=== PATIENT | female | born 1960 | race Caucasian/White ===

== ENCOUNTER 2017-06-05 12:27 | Day surgery (SDC) | payer OTHER ==
[~2017-06-05] VITALS: Ht 160 cm; Wt 73.0 kg
[~2017-06-05 12:27] MED LIST: AMBIEN10 M1 PO; AMBIEN10 MG PO; AMERGE2.5 MG PO; ATIVAN1 MG PO; ATIVAN2 MG PO; AUGMENTIN875 MG PO; Ambien PO; BENADRYL25 MG PO; CALAN80 MG PO; ESTRACE0.5 MG PO; FIORICET,ESG1 TABLET PO; FLEXERIL10 MG PO; FLONASE ALLERG9.9 ML BOTH NARES; INDOCIN25 MG PO; LEXAPRO20 MG PO; LORAZEPAM2 MG PO; LORTAB 5-325 M1 EACH PO; LORTAB 7.5-3251 EACH PO; Levothroid,Synthroid PO; MAXALT5 MG PO; MORPHINE SULFAT15 M1 PO; MORPHINE SULFAT15 MG PO; NORCO 5/3251 TABLET PO; PHENERGAN25 MG PR; PREMARIN0.3 MG PO; PREMARIN0.625 MG PO; PRILOSEC20 MG PO; PROAIR HFA8.5 GM IH; PROVENTIL HFA6.7 GM IH; Proventil,Ventolin H IH; QUETIAPINE FUM100 MG PO; QVAR 80 MCG IN7.3 GM IH; SEROQUEL XR150 MG PO; SEROQUEL100 MG PO; SEROQUEL50 MG PO; SYNTHROID25 MCG PO; SYNTHROID50 MCG PO; TOPAMAX25 MG PO; TRAMADOL HCL50 MG PO; TRILEPTAL300 MG PO; Tessalon Perle PO; VOLTAREN 1% GE100 GM TP; ZOCOR40 MG PO; ZOCOR80 MG PO; ZOLOFT50 MG PO; Zocor PO
== END 2017-06-05 13:45 | disposition home or self-care (01) ==
LOC: PAIN 12:27
DX: M47.22 Other spondylosis with radiculopathy, cervical region (principal); M50.123 Cervical disc disorder at C6-C7 level with radiculopathy; M48.02 Spinal stenosis, cervical region; M54.81 Occipital neuralgia; K21.9 Gastro-esophageal reflux disease without esophagitis; E03.9 Hypothyroidism, unspecified; E78.5 Hyperlipidemia, unspecified; J45.20 Mild intermittent asthma, uncomplicated; F20.9 Schizophrenia, unspecified; Z87.891 Personal history of nicotine dependence
CPT/HCPCS: J1030; J2250; J3010; S0020

== ENCOUNTER 2017-06-17 10:47 | Day surgery (SDC) | payer OTHER ==
[~2017-06-17] VITALS: Ht 160 cm; Wt 72.6 kg
[~2017-06-17 10:47] MED LIST changes: +LYRICA75 MG PO; +MS CONTIN,ORAMO15 M1 PO
== END 2017-06-17 12:15 | disposition home or self-care (01) ==
LOC: PAIN 10:47 → SDC 15:00
DX: M47.22 Other spondylosis with radiculopathy, cervical region (principal); M50.123 Cervical disc disorder at C6-C7 level with radiculopathy; M48.02 Spinal stenosis, cervical region; J44.9 Chronic obstructive pulmonary disease, unspecified; F31.9 Bipolar disorder, unspecified; K21.9 Gastro-esophageal reflux disease without esophagitis; E03.9 Hypothyroidism, unspecified; E78.5 Hyperlipidemia, unspecified; Z87.891 Personal history of nicotine dependence; Z79.891 Long term (current) use of opiate analgesic
CPT/HCPCS: J1030; J1885; J2250; J3010; S0020